=== PATIENT | male | born 1955 | race African-American/Black ===

== ENCOUNTER → 2018-05-14 | Outpatient (CLI) | payer MEDICARE, MEDICAID ==
--- NOTE | 2018-05-14 10:18 | PCVCIMAG ---
APPROVED REPORT Study performed: 05/14/2018 08:56:47 EXAM: Comprehensive 2D, Doppler, and color-flow Echocardiogram Patient Location: Echo lab Status: routine BSA: 2.18 HR: 90 bpmBP: 152/90 mmHg Rhythm: NSR Other Information Study Quality: Good Risk Factors: Cardiac Risk Factors: HTN, Hyperlipidemia, Smoking Indications CAD 2D Dimensions IVSd: 13.85 (7-11mm)LVOT Diam: 22.00 (18-24mm) LVDd: 50.94 mm PWd: 13.85 (7-11mm)Ascending Ao: 35.18 (22-36mm) LVDs: 38.86 (25-40mm) Left Atrium: 43.06 (27-40mm) Aortic Root: 34.15 mm LV Single Plane 4CH: 35.30 % LV Single Plane 2CH: 33.90 % Biplane EF: 33.8 % Volumes Left Atrial Volume (Systole) Single Plane 4CH: 71.72 mLSingle Plane 2CH: 78.36 mL LA ESV Index: 36.00 mL/m2 Aortic Valve AoV Peak Mino.: 1.29 m/s AO Peak Gr.: 6.68 mmHgLVOT Max P.75 mmHg LVOT Max V: 1.09 m/s ALEXANDER Vmax: 3.23 cm2 Mitral Valve E/A Ratio: 1.5 MV Decel. Time: 175.37 ms MV E Max Mino.: 1.09 m/s MV A Mino.: 0.71 m/s IVRT: 62.28 ms TDI E/Lateral E': 18.17E/Medial E': 21.80 Medial E' Mino.: 0.05 m/s Lateral E' Mino.: 0.06 m/s Pulmonary Valve PV Peak Mino.: 0.87 m/sPV Peak Gr.: 3.03 mmHg Pulmonary Vein P Vein S: 0.58 m/sP Vein A: 0.38 m/s P Vein D: 0.57 m/sP Vein A Dur.: 76.1 msec P Vein S/D Ratio: 1.02 Tricuspid Valve TR Peak Mino.: 3.41 m/sRAP Estimate: 7.00 mmHg TR Peak Gr.: 46.59 mmHg PA Pressure: 36.00 mmHg Left Ventricle The left ventricle is normal size. HK of mid to basal inferior wall. Mild concentric left ventricular hypertrophy. Left ventricular systolic function is mildly decreased. LVEF is 45%. Moderate diastolic dysfunction is present (pseudonormal filling). Right Ventricle The right ventricle is normal size. The right ventricular systolic function is normal. Atria Left atrium is mildly dilated. The right atrium size is normal. Aortic Valve The Aortic valve is sclerotic. Trace aortic regurgitation. There is no aortic valvular stenosis. Mitral Valve The mitral valve is normal in structure. Mild mitral regurgitation. No evidence of mitral valve stenosis. Tricuspid Valve The tricuspid valve is normal in structure. Mild tricuspid regurgitation. Pulmonary artery pressure is 54 mmHg. Moderate pulmonary hypertension. Pulmonic Valve The pulmonary valve is normal in structure. Trace pulmonic regurgitation. Great Vessels The aortic root is normal in size. IVC is normal in size and collapses >50% with inspiration. Pericardium There is no pericardial effusion. <Conclusion> The left ventricle is normal size. Mild concentric left ventricular hypertrophy. Left ventricular systolic function is mildly decreased. LVEF is 45%. Moderate diastolic dysfunction is present (pseudonormal filling). The right ventricle is normal size. Left atrium is mildly dilated. The Aortic valve is sclerotic. Mild mitral regurgitation. Mild tricuspid regurgitation. Pulmonary artery pressure is 54 mmHg. Moderate pulmonary hypertension.
== END | disposition home or self-care (01) ==
LOC: PCVCIMAG 11:49
PROVIDERS: ATTEND Psychiatry & Neurology Neuromuscular Medicine
DX: I08.1 Rheumatic disorders of both mitral and tricuspid valves (principal); I25.10 Atherosclerotic heart disease of native coronary artery without angina pectoris; I10 Essential (primary) hypertension; E78.5 Hyperlipidemia, unspecified
CPT/HCPCS: 93306

== ENCOUNTER → 2018-06-23 | Outpatient (CLI) | payer MEDICARE | END | disposition home or self-care (01) | LOC: PCVCCLINIC 11:00 | PROVIDERS: ATTEND Internal Medicine Cardiovascular Disease | DX: I25.10 Atherosclerotic heart disease of native coronary artery without angina pectoris (principal); E11.9 Type 2 diabetes mellitus without complications; E78.5 Hyperlipidemia, unspecified; I10 Essential (primary) hypertension; F17.210 Nicotine dependence, cigarettes, uncomplicated; Z72.89 Other problems related to lifestyle | CPT/HCPCS: 36415 ==

== ENCOUNTER → 2018-07-02 | Outpatient (CLI) | payer MEDICARE, MEDICAID | END | disposition home or self-care (01) | LOC: PCVCCLINIC 10:25 | PROVIDERS: ATTEND Internal Medicine Cardiovascular Disease | DX: I25.10 Atherosclerotic heart disease of native coronary artery without angina pectoris (principal); F17.200 Nicotine dependence, unspecified, uncomplicated; E78.00 Pure hypercholesterolemia, unspecified; I11.0 Hypertensive heart disease with heart failure; I50.9 Heart failure, unspecified; Z79.82 Long term (current) use of aspirin | CPT/HCPCS: 93005; G0463 ==

== ENCOUNTER → 2018-10-05 | Outpatient (CLI) | payer MEDICARE, MEDICAID | END | disposition home or self-care (01) | LOC: PCVCCLINIC 14:13 | PROVIDERS: ATTEND Internal Medicine Cardiovascular Disease | DX: I25.10 Atherosclerotic heart disease of native coronary artery without angina pectoris (principal); I10 Essential (primary) hypertension; E78.00 Pure hypercholesterolemia, unspecified; F17.200 Nicotine dependence, unspecified, uncomplicated; E11.9 Type 2 diabetes mellitus without complications | CPT/HCPCS: 93005; G0463 ==

== ENCOUNTER → 2018-10-27 | Outpatient (CLI) | payer MEDICARE, MEDICAID ==
--- NOTE | 2018-10-27 10:16 | PCVCIMAG ---
APPROVED REPORT Study performed: 10/27/2018 09:13:00 EXAM: Comprehensive 2D, Doppler, and color-flow Echocardiogram Patient Location: Echo lab Status: routine BSA: 2.16 HR: 73 bpmBP: 140/90 mmHg Rhythm: NSR Other Information Study Quality: Good Risk Factors: Cardiac Risk Factors: HTN, Hyperlipidemia, DM Indications CAD Stent, [place] 2D Dimensions IVSd: 13.18 (7-11mm)LVOT Diam: 22.72 (18-24mm) LVDd: 54.24 mm PWd: 12.96 (7-11mm)Ascending Ao: 42.59 (22-36mm) LVDs: 36.74 (25-40mm) Left Atrium: 43.82 (27-40mm) Aortic Root: 36.36 mm LV Single Plane 4CH: 41.12 % LV Single Plane 2CH: 46.65 % Biplane EF: 44.7 % Volumes Left Atrial Volume (Systole) Single Plane 4CH: 52.64 mLSingle Plane 2CH: 41.11 mL LA ESV Index: 22.00 mL/m2 Aortic Valve AoV Peak Mino.: 1.22 m/s AO Peak Gr.: 6.86 mmHgLVOT Max P.92 mmHg LVOT Max V: 0.69 m/s ALEXANDER Vmax: 2.29 cm2 Mitral Valve E/A Ratio: 0.6 MV Decel. Time: 233.94 ms MV E Max Mino.: 0.53 m/s MV A Mino.: 0.85 m/s IVRT: 159.17 ms TDI E/Lateral E': 5.89E/Medial E': 13.25 Medial E' Mino.: 0.04 m/s Lateral E' Mino.: 0.09 m/s Pulmonary Valve PV Peak Gr.: 3.30 mmHg Pulmonary Vein P Vein S: 0.58 m/sP Vein A: 0.40 m/s P Vein D: 0.34 m/sP Vein A Dur.: 90.0 msec P Vein S/D Ratio: 1.71 Tricuspid Valve TR Peak Mino.: 2.73 m/s TR Peak Gr.: 29.73 mmHg Left Ventricle The left ventricle is normal size. Inferior wall hypokinesis. Mild concentric left ventricular hypertrophy. Left ventricular systolic function is mildly decreased. LVEF is 45%. Grade I - abnormal relaxation pattern. Right Ventricle The right ventricle is normal size. The right ventricular systolic function is normal. Atria The left atrium size is normal. The right atrium size is normal. Aortic Valve The aortic valve is normal in structure. No aortic regurgitation is present. There is no aortic valvular stenosis. Mitral Valve The mitral valve is normal in structure. There is no mitral valve regurgitation noted. No evidence of mitral valve stenosis. Tricuspid Valve The tricuspid valve is normal in structure. Trace tricuspid regurgitation. Pulmonary artery pressure is 37mmHg. Pulmonic Valve The pulmonary valve is normal in structure. There is no pulmonic valvular regurgitation. Great Vessels The aortic root is normal in size. The ascending aorta is mildly dilated measuring 4.2-4.4cm. IVC is normal in size and collapses >50% with inspiration. Pericardium There is no pericardial effusion. <Conclusion> The left ventricle is normal size. Mild concentric left ventricular hypertrophy. Left ventricular systolic function is mildly decreased. LVEF is 45%. Inferior wall hypokinesis. Grade I - abnormal relaxation pattern. The right ventricle is normal size. The left atrium size is normal. The aortic valve is normal in structure. The mitral valve is normal in structure. Trace tricuspid regurgitation. Pulmonary artery pressure is 37mmHg.
== END | disposition home or self-care (01) ==
LOC: PCVCIMAG 09:08
PROVIDERS: ATTEND Internal Medicine Cardiovascular Disease
DX: I11.9 Hypertensive heart disease without heart failure (principal); I25.10 Atherosclerotic heart disease of native coronary artery without angina pectoris; I25.2 Old myocardial infarction; E78.00 Pure hypercholesterolemia, unspecified; F17.200 Nicotine dependence, unspecified, uncomplicated; Z79.82 Long term (current) use of aspirin; Z79.899 Other long term (current) drug therapy; Z95.1 Presence of aortocoronary bypass graft; Z79.84 Long term (current) use of oral hypoglycemic drugs; Z72.89 Other problems related to lifestyle
CPT/HCPCS: 36415; 80061; 93005; 93306; G0463

== ENCOUNTER → 2019-01-18 | Outpatient (CLI) | payer MEDICARE, MEDICAID | END | disposition home or self-care (01) | LOC: PCVCCLINIC 14:38 | PROVIDERS: ATTEND Internal Medicine Cardiovascular Disease | DX: I25.10 Atherosclerotic heart disease of native coronary artery without angina pectoris (principal); F17.200 Nicotine dependence, unspecified, uncomplicated; E78.5 Hyperlipidemia, unspecified; I11.0 Hypertensive heart disease with heart failure; I50.9 Heart failure, unspecified; Z86.73 Personal history of transient ischemic attack (TIA), and cerebral infarction without residual deficits; Z79.82 Long term (current) use of aspirin; Z79.899 Other long term (current) drug therapy | CPT/HCPCS: 93005; G0463 ==